=== PATIENT | female | born 1945 | race Caucasian/White ===

== ENCOUNTER 2016-10-21 09:40 | Emergency (ER) | payer MEDICARE ==
[2016-10-21 09:54] VITALS: TEMP 97; BMI 28.3
--- NOTE | 2016-10-21 10:38 | ED PDOC ---
HPI: General Adult Time Seen by Provider: 10/21/16 10:09 Chief Complaint (Nursing): Abdominal Pain Chief Complaint (Provider): abdominal pain History Per: Patient History/Exam Limitations: no limitations Additional Complaint(s): 71yo female comes to the ED complaining of right side flank pain for 2-3 days. Pain is constant, worse with movement, non-radiating. No nausae, vomit, diarrhea , fever, dysuria. She took Advil and muscle relaxant which minimally helped. PMD: buzz Past Medical History Reviewed: Historical Data, Nursing Documentation, Vital Signs Vital Signs: Last Vital Signs Temp 97 F L 10/21/16 09:53 Pulse 73 10/21/16 12:18 Resp BP 159/99 H 10/21/16 09:53 Pulse Ox 100 10/21/16 12:18 - Medical History PMH: Arthritis (spine), Back Problems, HTN, Hypercholesterolemia, Osteoporosis ( hips) - Surgical History Surgical History: Coronary Stent - Family History Family History: States: Unknown Family Hx - Home Medications Home Medications: Ambulatory Orders Medication Instructions Recorded Cyclobenzaprine [Flexeril] 5 mg PO Q8 PRN #6 tab 10/21/16 oxyCODONE/Acetaminophen [Percocet 1 ea PO Q6 PRN #6 tab 10/21/16 5/325 mg Tab] - Allergies Allergies/Adverse Reactions: Allergies Allergy/AdvReac Type Severity Reaction Status Date / Time No Known Allergies Allergy Verified 10/21/16 09:59 Review of Systems ROS Statement: Except As Marked, All Systems Reviewed And Found Negative Constitutional: Negative for: Fever Gastrointestinal: Negative for: Nausea, Vomiting, Diarrhea Genitourinary Female: Negative for: Dysuria Physical Exam - Reviewed Nursing Documentation Reviewed: Yes Vital Signs Reviewed: Yes - Physical Exam Appears: Positive for: Well, Non-toxic, No Acute Distress Head Exam: Positive for: ATRAUMATIC, NORMAL INSPECTION, NORMOCEPHALIC Skin: Positive for: Warm, Dry. Negative for: Rash Eye Exam: Positive for: EOMI, PERRL Cardiovascular/Chest: Positive for: Regular Rate, Rhythm Respiratory: Positive for: Normal Breath Sounds. Negative for: Rales, Rhonchi, Wheezing Gastrointestinal/Abdominal: Positive for: Soft, Tenderness (right upper quadrant , right flank). Negative for: Guarding, Rebound Back: Negative for: L CVA Tenderness, R CVA Tenderness Extremity: Positive for: Normal ROM Neurologic/Psych: Positive for: Alert, Oriented - Laboratory Results Result Diagrams: 10/21/16 10:54 10/21/16 10:54 - ECG ECG: Positive for: Interpreted By Me, Viewed By Me ECG Rhythm: Positive for: Normal QRS, Normal ST Segment, Sinus Rhythm. Negative for: ST/T Changes Rate: 73 O2 Sat by Pulse Oximetry: 100 (RA) Pulse Ox Interpretation: Normal - CT Scan/US CT abd/pel w/o Other Rad Studies (CT/US): Read By Radiologist, Radiology Report Reviewed Other Rad Interpretation: unremarkable - Progress Re-evaluation Time: 12:16 Condition: Re-examined, Improved Medical Decision Making Medical Decision Makin impression muscle spasm, musculoskeletal pain, atypical presentation renal colic Plan: CT abd/pel w/o, labs, Flexeril, Percocet. Disposition - Clinical Impression Clinical Impression: Flank pain, Muscle spasm - Patient ED Disposition Is Patient to be Admitted: No Doctor Will See Patient In The: Office Counseled Patient/Family Regarding: Studies Performed, Diagnosis, Need For Followup - Disposition Referrals: Anderson Weinstein MD [Family Provider] - Disposition: Routine/Home Disposition Time: 12:13 Condition: GOOD Additional Instructions: Follow up with your PCP in 2-3 days. Prescriptions: Cyclobenzaprine [Flexeril] 5 mg PO Q8 PRN #6 tab PRN Reason: Muscle Spasm oxyCODONE/Acetaminophen [Percocet 5/325 mg Tab] 1 ea PO Q6 PRN #6 tab PRN Reason: Pain, Severe (8-10) Instructions: Muscle Strain (ED)
[2016-10-21 10:59] LABS: BASO % 0.3 % (0.0-2.0); EOS # 0.1 K/uL (0.0-0.7); EOS % 1.6 % (0.0-4.0); HEMATOCRIT 40.1 % (34.0-47.0); LYMPH # 1.4 K/uL (1.0-4.3); LYMPH % 23.3 % (20.0-40.0); MEAN CELL VOLUME 82.6 fl (81.0-99.0); MEAN CORPUSCULAR HEMOGLOBIN 26.6 pg (27.0-31.0); MEAN CORPUSCULAR HGB CONC 32.2 g/dL (33.0-37.0); MEAN PLATELET VOLUME 9.1 fl (7.2-11.7); MONO # 0.3 K/uL (0.0-0.8); MONO % 4.6 % (0.0-10.0); NEUT # 4.3 K/uL (1.8-7.0); NEUT % 70.2 % (50.0-75.0); NRBC % 0.1 % (0.0-0.0); WHITE BLOOD COUNT 6.2 K/uL (4.8-10.8)
[2016-10-21 11:08] LABS: ALB/GLOB RATIO 1.2 (1.0-2.1); ALKALINE PHOSPHATASE 94 U/L (38-126); ALT/SGPT 33 U/L (9-52); AST/SGOT 25 U/L (14-36); BILIRUBIN,TOTAL 0.6 mg/dl (0.2-1.3); BLOOD UREA NITROGEN 11 mg/dl (7-17); CARBON DIOXIDE 28 mmol/L (22-30); CHLORIDE 107 mmol/L (98-107); GFR AFRICAN-AMERICAN > 60; GLUCOSE,RANDOM 99 mg/dL (65-105); POTASSIUM 4.1 MMOL/L (3.6-5.0); SODIUM 145 mmol/l (132-148); TOTAL PROTEIN 6.9 G/DL (6.3-8.2)
[2016-10-21] MEDS ORDERED: Oxycodone/Acetaminophen 5/325 mg Tab ONE (11:11)
[2016-10-21] MEDS ORDERED: Oxycodone/Acetaminophen 5/325 mg Tab PO ONE (11:13)
--- NOTE | 2016-10-21 11:53 | CT ---
PROCEDURE: CT Abdomen and Pelvis without intravenous contrast HISTORY: RIGHT FLANK PAIN COMPARISON: None. TECHNIQUE: Technique. Contrast Dose: Radiation dose: Total exam DLP = mGy-cm. FINDINGS: LOWER THORAX: Unremarkable. LIVER: Unremarkable. No gross lesion or ductal dilatation. GALLBLADDER AND BILE DUCTS: Unremarkable. PANCREAS: Unremarkable. No gross lesion or ductal dilatation. SPLEEN: Unremarkable. ADRENALS: Unremarkable. No mass. KIDNEYS AND URETERS: Unremarkable. No hydronephrosis. No solid mass. VASCULATURE: Unremarkable. No aortic aneurysm. BOWEL: Unremarkable. No obstruction. No gross mural thickening. APPENDIX: Unremarkable. Normal appendix. PERITONEUM: Unremarkable. No free fluid. No free air. LYMPH NODES: Unremarkable. No enlarged lymph nodes. BLADDER: Unremarkable. REPRODUCTIVE: Pessary in place.. BONES: No acute fracture. OTHER FINDINGS: None. IMPRESSION: Unremarkable non contrast enhanced CT of the abdomen and pelvis.
[2016-10-21 13:09] VITALS: BP 110/68; PULSE 70; RESP 16; O2SAT 98
== END 2016-10-21 13:11 | disposition home or self-care (01) ==
LOC: H.ER 09:40
DX: R10.9 Unspecified abdominal pain (principal); M62.838 Other muscle spasm; E78.00 Pure hypercholesterolemia, unspecified; I10 Essential (primary) hypertension; Z95.5 Presence of coronary angioplasty implant and graft

== ENCOUNTER 2017-10-21 00:47 | Observation (INO) | payer MEDICARE ==
[2017-10-21 00:48] VITALS: BMI 28.3
[2017-10-21 02:10] LABS: BASO # 0.1 K/uL (0.0-0.2); BASO % 0.9 % (0.0-2.0); EOS # 0.2 K/uL (0.0-0.7); EOS % 2.5 % (0.0-4.0); HEMOGLOBIN 12.5 g/dL (12.0-16.0); LYMPH # 2.1 K/uL (1.0-4.3); LYMPH % 24.2 % (20.0-40.0); MEAN CORPUSCULAR HEMOGLOBIN 26.6 pg (27.0-31.0); MEAN CORPUSCULAR HGB CONC 32.4 g/dL (33.0-37.0); MEAN PLATELET VOLUME 9.2 fl (7.2-11.7); MONO # 0.5 K/uL (0.0-0.8); MONO % 5.6 % (0.0-10.0); NEUT # 5.9 K/uL (1.8-7.0); NEUT % 66.8 % (50.0-75.0); NRBC % 0.2 % (0.0-0.0); RBC 4.7 Mil/uL (3.80-5.20); RED CELL DISTRIBUTION WIDTH 15.1 % (11.5-14.5); WHITE BLOOD COUNT 8.8 K/uL (4.8-10.8)
[2017-10-21 02:16] LABS: SQUAMOUS EPITHIAL 3 /hpf (0-5); URINE BILIRUBIN NEGATIVE (NEGATIVE); URINE BLOOD SMALL (NEGATIVE); URINE CLARITY SLIGHTY-CLOUDY (Clear); URINE COLOR YELLOW (YELLOW); URINE GLUCOSE (UA) NEG (Normal); URINE LEUKOCYTE ESTERASE NEG Leu/uL (Negative); URINE PROTEIN NEGATIVE (NEGATIVE); URINE UROBILINOGEN 0.2-1.0 mg/dL (0.2-1.0)
[2017-10-21 02:17] LABS: ALB/GLOB RATIO 1.2 (1.0-2.1); ALBUMIN 4.1 g/dL (3.5-5.0); ALT/SGPT 26 U/L (9-52); AST/SGOT 24 U/L (14-36); BLOOD UREA NITROGEN 14 mg/dl (7-17); CALCIUM 9.7 mg/dL (8.4-10.2); GFR AFRICAN-AMERICAN > 60; GFR NON-AFRICAN AMERICAN > 60
[2017-10-21 02:29] LABS: B-TYPE NATRIURETIC PEPTIDE 421 pg/ml (0-900)
[2017-10-21 02:38] LABS: PARTIAL THROMBOPLASTIN TIME 31.4 Seconds (25.6-37.1); PROTHROMBIN TIME 10.8 Seconds (9.8-13.1)
--- NOTE | 2017-10-21 03:03 | ED PDOC ---
HPI: Chest Pain Time Seen by Provider: 10/21/17 01:02 Chief Complaint (Nursing): Chest Pain Chief Complaint (Provider): Chest Pain History Per: Patient History/Exam Limitations: no limitations Onset/Duration Of Symptoms: Hrs (x2) Current Symptoms Are (Timing): Still Present Quality: Other (discomfort) Additional Complaint(s): 72 year old female presents to ED with complaints of chest pain x2 hours and has a past medical history of HTN, CAD, coronary stents x4, dyslipidemia, and a laparoscopy 5 days aog. Patient describes the pain as a discomfort present on the left side of her chest. Notes that the pain originated while the patient was at rest and that it radiates down her left arm in a "vibration" sensation. ( +) nausea and SOB. (-) vomiting or diaphoresis. PCP: Anderson Weinstein - Risk Factors TAD Risk Factors: Pos: Hypertension Past Medical History Reviewed: Historical Data, Nursing Documentation, Vital Signs Vital Signs: Last Vital Signs Temp 97.6 F 10/21/17 01:00 Pulse 58 L 10/21/17 05:33 Resp 17 10/21/17 05:33 BP 129/59 L 10/21/17 05:33 Pulse Ox 98 10/21/17 05:33 - Medical History PMH: Arthritis (spine), Back Problems, HTN, Hypercholesterolemia, Osteoporosis ( hips) - Surgical History Surgical History: Coronary Stent - Family History Family History: States: Unknown Family Hx - Social History Current smoker - smoking cessation education provided: No Ex-Smoker (has not smoked in the last 12 months): No Alcohol: None Drugs: Denies - Home Medications Home Medications: Ambulatory Orders Medication Instructions Recorded ALPRAZolam [Xanax] 0.25 mg PO PRN PRN 10/21/17 Aspirin [Ecotrin] 81 mg PO DAILY 10/21/17 Bisoprolol [Zebeta] 10 mg PO DAILY 10/21/17 Rosuvastatin Calcium [Crestor] 20 mg PO DAILY 10/21/17 Valsartan/Hydrochlorothiazide 1 tab PO DAILY 10/21/17 [Valsartan-Hctz 160-12.5 mg Tab] - Allergies Allergies/Adverse Reactions: Allergies Allergy/AdvReac Type Severity Reaction Status Date / Time No Known Allergies Allergy Verified 10/21/17 02:35 VERONIQUE Risk Score for UA/NSTEMI - VERONIQUE Risk Score Age > 64: YES Known CAD (Stenosis greater than 50%): YES VERONIQUE Score: 2 Risk %: 8% Curb-65 Severity Score - CURB-65 Severity Score Confusion: No Respiratory Rate greater than/equal to 30: No Systolic BP <90 or Diastolic BP less than/equal 60mmHg: No Age >64: Yes Curb-65 Score: 1 Percentage 30-day mortality: 2.7% Wells Criteria for PE - Wells Criteria for Pulmonary Embolism Clinical Signs and Symptoms of DVT: No P.E is #1 Diagnosis, or Equally Likely: No Heart Rate >100: No Previous, objectively diagnosed PE or DVT: No Hemoptysis: No Total Score: 0 Review of Systems ROS Statement: Except As Marked, All Systems Reviewed And Found Negative Constitutional: Negative for: Sweats Cardiovascular: Positive for: Chest Pain Respiratory: Positive for: Shortness of Breath Gastrointestinal: Positive for: Nausea. Negative for: Vomiting Musculoskeletal: Positive for: Arm Pain (chest pain radiates to left arm in a "vibration" sensation) Physical Exam - Reviewed Nursing Documentation Reviewed: Yes Vital Signs Reviewed: Yes - Physical Exam Appears: Positive for: Non-toxic, No Acute Distress Skin: Positive for: Normal Color, Warm, Dry Cardiovascular/Chest: Positive for: Regular Rate, Rhythm. Negative for: Murmur Respiratory: Positive for: Normal Breath Sounds. Negative for: Respiratory Distress Gastrointestinal/Abdominal: Positive for: Normal Exam (Well-healed umbilical scar with some ecchymosis. Well-healed suprapubic scar with some ecchymosis.), Soft. Negative for: Tenderness Extremity: Positive for: Normal ROM. Negative for: Deformity Neurologic/Psych: Positive for: Alert, Oriented. Negative for: Motor/Sensory Deficits - Laboratory Results Result Diagrams: 10/21/17 02:02 10/21/17 02:02 - ECG O2 Sat by Pulse Oximetry: 99 (RA) Pulse Ox Interpretation: Normal Medical Decision Making Medical Decision Makin Initial impression: chest pain in setting of known coronary disease Initial plan: * Labs * Trop I * PTT/PT * CXR * UA 0310 CXR: NAD 0400 Labs reviewed: no clinically significant abnormalities. Discussed case with Dr. Lucas, who accepts patient under his care for chest pain ( CHEST PAIN OBS) Condition: fair Scribe Attestation: Documented by Sarah Chapin acting as a scribe for Linden S Sikand, MD. Scribe Attestation: All medical record entries made by the Scribe were at my direction and personally dictated by me. I have reviewed the chart and agree that the record accurately reflects my personal performance of the history, physical exam, medical decision making, and the department course for this patient. I have also personally directed, reviewed, and agree with the discharge instructions and disposition. Disposition - Clinical Impression Clinical Impression: Chest pain - Patient ED Disposition Is Patient to be Admitted: Yes Discussed With : Kevon Lucas - Disposition Disposition Time: 04:00 Condition: FAIR - Pt Status Changed To: Hospital Disposition Of: Observation (OBS CHEST PAIN)
--- NOTE | 2017-10-21 06:09 | CP.PCM.HP ---
History of Present Illness - History of Present Illness History of Present Illness: CC: Chest pain HPI: This is a 72 y/o female with known CAD as well as HTN, HLD, and several recent manager investment banking surgeries. She states that she developed CP about 2 hours prior to arrival with radiation to the L and? palpitations. States she is always slightly SOB, but this is not worse. Denies n/v/d. Denies diaphoresis. States she had hysterectomy last month and then laparoscopy for persistent abd pain about 5 days ago. Denies f/c/n/v/d. ROS: 14 systems reviewed, negative other than HPI MHx: CAD, HTN, HLD, osteoporosis SHx: Stents, hysterectomy, laparoscopy (5 days ago) Allergies: NKDA Medications: as per med rec Family Hx: Patient unaware of any relevant history Social Hx: Patient lives alone, no significant EtOH, no tobacco Surrogate: Daughter, contact info in chart Present on Admission - Present on Admission Any Indicators Present on Admission: No Past Patient History - Past Social History Alcohol: None Drugs: Denies - CARDIAC Hx Hypercholesterolemia: Yes Hx Hypertension: Yes - MUSCULOSKELETAL/RHEUMATOLOGICAL Hx Arthritis: Yes (spine) Hx Osteoporosis: Yes (hips) - PSYCHIATRIC Hx Substance Use: No - SURGICAL HISTORY Hx Coronary Stent: Yes - ANESTHESIA Hx Anesthesia: Yes Hx Anesthesia Reactions: No Meds Allergies/Adverse Reactions: Allergies Allergy/AdvReac Type Severity Reaction Status Date / Time No Known Allergies Allergy Verified 10/21/17 02:35 Physical Exam - Constitutional Appears: No Acute Distress - Head Exam Head Exam: ATRAUMATIC, NORMOCEPHALIC - Eye Exam Eye Exam: EOMI, PERRL - ENT Exam ENT Exam: Mucous Membranes Moist - Neck Exam Neck exam: Positive for: Full Rom - Respiratory Exam Respiratory Exam: Clear to Auscultation Bilateral, NORMAL BREATHING PATTERN - Cardiovascular Exam Cardiovascular Exam: REGULAR RHYTHM, +S1, +S2 - GI/Abdominal Exam GI & Abdominal Exam: Normal Bowel Sounds, Soft - Extremities Exam Extremities exam: Positive for: full ROM, normal inspection - Neurological Exam Neurological exam: Alert, CN II-XII Intact, Oriented x3 - Psychiatric Exam Psychiatric exam: Normal Affect, Normal Mood - Skin Skin Exam: Dry, Warm Results - Vital Signs Recent Vital Signs: Last Vital Signs Temp 97.6 F 10/21/17 01:00 Pulse 58 L 10/21/17 05:33 Resp 17 10/21/17 05:33 BP 129/59 L 10/21/17 05:33 Pulse Ox 98 10/21/17 05:33 - Labs Result Diagrams: 10/21/17 02:02 10/21/17 02:02 Labs: Laboratory Results - last 24 hr 10/21/17 10/21/17 10/21/17 02:02 02:02 02:02 WBC 8.8 RBC 4.70 Hgb 12.5 Hct 38.5 MCV 82.0 MCH 26.6 L MCHC 32.4 L RDW 15.1 H Plt Count 207 MPV 9.2 Neut % (Auto) 66.8 Lymph % (Auto) 24.2 [place] % (Auto) 5.6 Eos % (Auto) 2.5 Baso % (Auto) 0.9 Neut # (Auto) 5.9 Lymph # (Auto) 2.1 [place] # (Auto) 0.5 Eos # (Auto) 0.2 Baso # (Auto) 0.1 PT 10.8 INR 1.0 APTT 31.4 Sodium 143 Potassium 4.0 Chloride 101 Carbon Dioxide 29 Anion Gap 17 BUN 14 Creatinine 0.7 Est GFR ( Amer) > 60 Est GFR (Non-Af Amer) > 60 Random Glucose 102 Calcium 9.7 Total Bilirubin 0.6 AST 24 ALT 26 Alkaline Phosphatase 93 Troponin I < 0.0120 NT-Pro-B Natriuret Pep 421 Total Protein 7.6 Albumin 4.1 Globulin 3.5 Albumin/Globulin Ratio 1.2 Urine Color Urine Clarity Urine pH Ur Specific [place] Urine Protein Urine Glucose (UA) Urine Ketones Urine Blood Urine Nitrate Urine Bilirubin Urine Urobilinogen Ur Leukocyte Esterase Urine RBC (Auto) Urine Microscopic WBC Ur Squamous Epith Cells 10/21/17 02:02 WBC RBC Hgb Hct MCV MCH MCHC RDW Plt Count MPV Neut % (Auto) Lymph % (Auto) [place] % (Auto) Eos % (Auto) Baso % (Auto) Neut # (Auto) Lymph # (Auto) [place] # (Auto) Eos # (Auto) Baso # (Auto) PT INR APTT Sodium Potassium Chloride Carbon Dioxide Anion Gap BUN Creatinine Est GFR ( Amer) Est GFR (Non-Af Amer) Random Glucose Calcium Total Bilirubin AST ALT Alkaline Phosphatase Troponin I NT-Pro-B Natriuret Pep Total Protein Albumin Globulin Albumin/Globulin Ratio Urine Color Yellow Urine Clarity Slighty-cloudy Urine pH 7.0 Ur Specific [place] 1.016 Urine Protein Negative Urine Glucose (UA) Neg Urine Ketones Negative Urine Blood Small Urine Nitrate Negative Urine Bilirubin Negative Urine Urobilinogen 0.2-1.0 Ur Leukocyte Esterase Neg Urine RBC (Auto) 1 Urine Microscopic WBC 2 Ur Squamous Epith Cells 3 - EKG Data EKG Interpreted by: Myself EKG shows normal: Sinus rhythm Rate: Normal - EKG Data EKG comments: No st elevation/depression, no specific findings - Imaging and Cardiology Chest x-ray Status: Image reviewed by me (no significant findings) Assessment & Plan (1) Chest pain Assessment and Plan: A/P: 72 y/o female with HTN, HLD and known CAD presenting with CP. r/o ACS. -Admit tele -Serial trops -Consider echo, cardiology consult as needed -ASA 325 daily, SLNG PRN -Cont medications for HTN, HLD -SCDs/ambulation for DVT PPx Status: Acute (2) CAD (coronary artery disease) Status: Acute (3) HTN (hypertension) Status: Acute (4) HLD (hyperlipidemia) Status: Acute (5) DVT prophylaxis Status: Acute
[2017-10-21 06:48] VITALS: O2SAT 98
--- NOTE | 2017-10-21 08:30 | RAD ---
HISTORY: chest pain COMPARISON: Portable chest 10/16/2010. FINDINGS: LUNGS: No active pulmonary disease. PLEURA: No significant pleural effusion identified, no pneumothorax apparent. CARDIOVASCULAR: Normal. OSSEOUS STRUCTURES: No significant abnormalities. VISUALIZED UPPER ABDOMEN: Normal. OTHER FINDINGS: None. IMPRESSION: No interval acute cardiopulmonary disease appreciated.
[2017-10-21] MEDS ORDERED: Aspirin 325 mg EC Tablets PO ONE (10:07)
--- NOTE | 2017-10-21 17:27 | CP.PCM.DIS ---
Provider - Provider Date of Admission: 10/21/17 05:03 Attending physician: Kevon Lucas MD Primary care physician: Anderson Weinstein MD Time Spent in preparation of Discharge (in minutes): 25 Hospital Course - Lab Results Lab Results: Most Recent Lab Values WBC 8.8 K/uL (4.8-10.8) 10/21/17 02:02 RBC 4.70 Mil/uL (3.80-5.20) 10/21/17 02:02 Hgb 12.5 g/dL (12.0-16.0) 10/21/17 02:02 Hct 38.5 % (34.0-47.0) 10/21/17 02:02 MCV 82.0 fl (81.0-99.0) 10/21/17 02:02 MCH 26.6 pg (27.0-31.0) L 10/21/17 02:02 MCHC 32.4 g/dL (33.0-37.0) L 10/21/17 02:02 RDW 15.1 % (11.5-14.5) H 10/21/17 02:02 Plt Count 207 K/uL (130-400) 10/21/17 02:02 MPV 9.2 fl (7.2-11.7) 10/21/17 02:02 Neut % (Auto) 66.8 % (50.0-75.0) 10/21/17 02:02 Lymph % (Auto) 24.2 % (20.0-40.0) 10/21/17 02:02 [place] % (Auto) 5.6 % (0.0-10.0) 10/21/17 02:02 Eos % (Auto) 2.5 % (0.0-4.0) 10/21/17 02:02 Baso % (Auto) 0.9 % (0.0-2.0) 10/21/17 02:02 Neut # (Auto) 5.9 K/uL (1.8-7.0) 10/21/17 02:02 Lymph # (Auto) 2.1 K/uL (1.0-4.3) 10/21/17 02:02 [place] # (Auto) 0.5 K/uL (0.0-0.8) 10/21/17 02:02 Eos # (Auto) 0.2 K/uL (0.0-0.7) 10/21/17 02:02 Baso # (Auto) 0.1 K/uL (0.0-0.2) 10/21/17 02:02 PT 10.8 Seconds (9.8-13.1) 10/21/17 02:02 INR 1.0 (0.9-1.2) 10/21/17 02:02 APTT 31.4 Seconds (25.6-37.1) 10/21/17 02:02 Sodium 143 mmol/l (132-148) 10/21/17 02:02 Potassium 4.0 MMOL/L (3.6-5.0) 10/21/17 02:02 Chloride 101 mmol/L (98-107) 10/21/17 02:02 Carbon Dioxide 29 mmol/L (22-30) 10/21/17 02:02 Anion Gap 17 (10-20) 10/21/17 02:02 BUN 14 mg/dl (7-17) 10/21/17 02:02 Creatinine 0.7 mg/dl (0.7-1.2) 10/21/17 02:02 Est GFR ( Amer) > 60 10/21/17 02:02 Est GFR (Non-Af Amer) > 60 10/21/17 02:02 Random Glucose 102 mg/dL (65-105) 10/21/17 02:02 Calcium 9.7 mg/dL (8.4-10.2) 10/21/17 02:02 Total Bilirubin 0.6 mg/dl (0.2-1.3) 10/21/17 02:02 AST 24 U/L (14-36) 10/21/17 02:02 ALT 26 U/L (9-52) 10/21/17 02:02 Alkaline Phosphatase 93 U/L (38-126) 10/21/17 02:02 Troponin I < 0.0120 ng/mL (0.00-0.120) 10/21/17 11:40 NT-Pro-B Natriuret Pep 421 pg/ml (0-900) 10/21/17 02:02 Total Protein 7.6 G/DL (6.3-8.2) 10/21/17 02:02 Albumin 4.1 g/dL (3.5-5.0) 10/21/17 02:02 Globulin 3.5 gm/dL (2.2-3.9) 10/21/17 02:02 Albumin/Globulin Ratio 1.2 (1.0-2.1) 10/21/17 02:02 Urine Color Yellow (YELLOW) 10/21/17 02:02 Urine Clarity Slighty-cloudy (Clear) 10/21/17 02:02 Urine pH 7.0 (5.0-8.0) 10/21/17 02:02 Ur Specific [place] 1.016 (1.003-1.030) 10/21/17 02:02 Urine Protein Negative mg/dL (NEGATIVE) 10/21/17 02:02 Urine Glucose (UA) Neg mg/dL (Normal) 10/21/17 02:02 Urine Ketones Negative mg/dL (NEGATIVE) 10/21/17 02:02 Urine Blood Small (NEGATIVE) 10/21/17 02:02 Urine Nitrate Negative (NEGATIVE) 10/21/17 02:02 Urine Bilirubin Negative (NEGATIVE) 10/21/17 02:02 Urine Urobilinogen 0.2-1.0 mg/dL (0.2-1.0) 10/21/17 02:02 Ur Leukocyte Esterase Neg Rigoberto/uL (Negative) 10/21/17 02:02 Urine RBC (Auto) 1 /hpf (0-3) 10/21/17 02:02 Urine Microscopic WBC 2 /hpf (0-5) 10/21/17 02:02 Ur Squamous Epith Cells 3 /hpf (0-5) 10/21/17 02:02 - Hospital Course Hospital Course: This is a 72 year old female with pmh of CAD and stents x 4, hypertension, hyperlipidemia, with hysterectomy 1 month ago and follow up laparoscopy 5 days prior to admission who presented to the ED with the complaint of chest pain on the left side of her chest, beginning at rest, radiating down her left forearm with a "vibration" and tingling sensation. Complained of intermitted nausea and diaphoresis. Admitted to anxiety after her most recent procedure. In the ED, the patient was found to have nonischemic EKG and negative troponin. However the decision was made to keep her on telemetry/observation due to her significant cardiac history. Echocardiogram was performed. Troponin performed today was also undetectable. The patient is currently chest pain free and denies any nausea, sob, or other symptoms. She is being discharged to home in stable condition. Assessment and Plan: A/P: 72 y/o female with HTN, HLD and known CAD presenting with CP. r/o ACS. (1) Chest pain -discharged in stable condition, no adverse events on telemetry - nonischemic EKG -Serial trops x 2 negative, chest pain free -Echocardiogram performed, to be f/u as outpatient -ASA 81 mg po daily as outpatient -Cont medications for HTN, HLD -SCDs/ambulation for DVT PPx -Contact information given to patient for Dr. Felix, cardiology -Patient to follow up with her PMD within a week Status: Acute (2) CAD (coronary artery disease) Status: Acute (3) HTN (hypertension) Status: Acute - Continue Bisoprolol - Continue Diovan (4) HLD (hyperlipidemia) Status: Acute - Continue Lipitor (5) DVT prophylaxis Status: Acute Discharge Exam - Head Exam Head Exam: ATRAUMATIC, NORMOCEPHALIC - Additional Findings Additional findings: Physical exam: Constitutional- cooperative, awake, alert Head- NCAT, PERRL Eye- PERRL, EOMI ENT- normal exam, MMM. Neck- normal inspection, supple, no JVD Respiratory- CTAB, no wheezes rales rhonchi Cardiovascular- RRR, +S1, +S2 no MRG GI/Abdominal- normal bowel sounds, soft, no mass, no hsm Skin- warm, dry Extremities Exam- normal capillary refill, normal inspection Neurological Exam- alert, awake, oriented Psych- normal mood, normal affect Discharge Plan - Follow Up Plan Condition: FAIR Disposition: HOME/ ROUTINE Referrals: Anderson Weinstein MD [Primary Care Provider] - Alfonso Felix MD [Staff Provider] -
[2017-10-21 18:25] VITALS: BP 112/74; PULSE 70; RESP 20; TEMP 98.4
--- NOTE | 2017-10-21 23:26 | CARD ---
APPROVED REPORT EXAM: Two-dimensional and M-mode echocardiogram with Doppler and color Doppler. Other Information Quality : GoodRhythm : NSR INDICATION Cardiac Disease: CAD Chest Pain 2D DIMENSIONS IVSd1.12 (0.7-1.1cm)LVDd4.23 (3.9-5.9cm) LVOT Diameter1.86 (1.8-2.4cm)PWd1.00 (0.7-1.1cm) IVSs1.51 (0.8-1.2cm)LVDs2.79 (2.5-4.0cm) FS (%) 34.1 %PWs1.45 (0.8-1.2cm) LVEF (%)55.0 (>50%) M-Mode DIMENSIONS Left Atrium (MM)3.81 (2.5-4.0cm)IVSd0.82 (0.7-1.1cm) Aortic Root2.63 (2.2-3.7cm)LVDd5.28 (4.0-5.6cm) Aortic Cusp Exc.1.83 (1.5-2.0cm)PWd0.98 (0.7-1.1cm) IVSs1.75 cmFS (%) 56 % LVDs2.32 (2.0-3.8cm)PWs1.54 cm Mitral Valve MV E Qzkgzyra69.7cm/sMV DECEL [id number] A Daqmkkrr00.6cm/s MV JOR01trF/A ratio1.0MVA (PHT)3.85cm2 TDI Lateral E' Peak V9.53cm/sMedial E' Peak V6.68cm/sE/Lateral E'7.0 E/Medial E'10.0 Pulmonary Valve PV Peak Tcufnxjm84.7cm/s LEFT VENTRICLE The left ventricle is normal size. There is borderline concentric left ventricular hypertrophy. The left ventricular function is normal. The left ventricular ejection fraction is within the normal range. There is normal LV segmental wall motion. Transmitral Doppler flow pattern is Grade I-abnormal relaxation pattern. RIGHT VENTRICLE The right ventricle is normal size. There is normal right ventricular wall thickness. Systolic function is borderline reduced. ATRIA The left atrium size is normal. The right atrium size is normal. AORTIC VALVE The aortic valve is normal in structure. No aortic regurgitation is present. There is no aortic valvular stenosis. MITRAL VALVE The mitral valve is normal in structure. There is no evidence of mitral valve prolapse. There is no mitral valve stenosis. There is no mitral valve regurgitation noted. TRICUSPID VALVE The tricuspid valve is normal in structure. There is mild tricuspid regurgitation. PULMONIC VALVE The pulmonary valve is normal in structure. There is no pulmonic valvular regurgitation. GREAT VESSELS The aortic root is normal in size. The IVC is normal in size and collapses >50% with inspiration. PERICARDIAL EFFUSION There is a trace loculated anterior pericardial effusion. <Conclusion> The left ventricle is normal size. There is borderline concentric left ventricular hypertrophy. The left ventricular function is normal. The left ventricular ejection fraction is within the normal range. There is normal LV segmental wall motion. Transmitral Doppler flow pattern is Grade I-abnormal relaxation pattern.
== END 2017-10-21 17:30 | disposition home or self-care (01) ==
LOC: H.ER 00:47 → H.ERHOLD 05:03
PROVIDERS: ADMIT Internal Medicine; ATTEND Internal Medicine
DX: R07.9 Chest pain, unspecified (principal); I25.10 Atherosclerotic heart disease of native coronary artery without angina pectoris; M81.0 Age-related osteoporosis without current pathological fracture; Z79.82 Long term (current) use of aspirin; Z90.710 Acquired absence of both cervix and uterus; Z95.5 Presence of coronary angioplasty implant and graft; M19.90 Unspecified osteoarthritis, unspecified site; Z79.899 Other long term (current) drug therapy; E78.00 Pure hypercholesterolemia, unspecified; E78.5 Hyperlipidemia, unspecified; F41.9 Anxiety disorder, unspecified; I10 Essential (primary) hypertension
CPT/HCPCS: 71045; 80053; 81003; 83880; 84484; 85025; 85610; 85730; 93306; 99283; G0378

== ENCOUNTER 2018-05-25 12:39 | Emergency (ER) | payer MEDICARE ==
[2018-05-25 12:39] VITALS: BMI 28.3
--- NOTE | 2018-05-25 13:24 | ED PDOC ---
HPI: Chest Pain Time Seen by Provider: 05/25/18 13:03 Chief Complaint (Nursing): Chest Pain Chief Complaint (Provider): Chest Pain History Per: Patient History/Exam Limitations: no limitations Onset/Duration Of Symptoms: Days (x3) Current Symptoms Are (Timing): Constant Quality: Squeezing Associated Symptoms: denies: Nausea Additional Complaint(s): Patient is a 73 y/o female with history of osteoporosis and arthritis with [address], who presents to the ED with chest pain with associated left arm numbness/discomfort, onset x3 days ago. Patient describes the pain as a constant squeezing pain. She states her pain is severe but she is able to sleep through it if she takes aspirin. She describes her numbness as a "funny feeling" in her arm and symptoms are present on arrival to ED. Patient also reports swollen fingers, headache, swelling in legs, and difficulty breathing when walking. 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 She denies nausea and vomiting. Patient additionally reports she has trouble getting up and states she feels unstable and it "takes a while for bones to go back in place." PMD: Anderson Weinstein Past Medical History Reviewed: Historical Data, Nursing Documentation, Vital Signs Vital Signs: Last Vital Signs Temp 97.4 F L 05/25/18 12:46 Pulse 66 05/25/18 12:46 Resp 18 05/25/18 12:46 BP 158/72 H 05/25/18 12:46 Pulse Ox 96 05/25/18 12:46 - Medical History PMH: Arthritis (spine), Back Problems, HTN, Hypercholesterolemia, Osteoporosis (hips) - Surgical History Surgical History: Coronary Stent (x3) Other surgeries: partial hysterectomy - Family History Family History: States: Unknown Family Hx - Home Medications Home Medications: Ambulatory Orders Medication Instructions Recorded ALPRAZolam [Xanax] 0.25 mg PO PRN PRN 10/21/17 Aspirin [Ecotrin] 81 mg PO DAILY 10/21/17 Bisoprolol [Zebeta] 10 mg PO DAILY 10/21/17 Rosuvastatin Calcium [Crestor] 20 mg PO DAILY 10/21/17 Valsartan/Hydrochlorothiazide 1 tab PO DAILY 10/21/17 [Valsartan-Hctz 160-12.5 mg Tab] hydroCHLOROthiazide [Microzide] 12.5 mg PO DAILY cap 10/21/17 - Allergies Allergies/Adverse Reactions: Allergies Allergy/AdvReac Type Severity Reaction Status Date / Time No Known Allergies Allergy Verified 05/25/18 12:51 Review of Systems ROS Statement: Except As Marked, All Systems Reviewed And Found Negative Cardiovascular: Positive for: Chest Pain, Edema (swelling in legs) Respiratory: Positive for: SOB with Exertion (walking) Gastrointestinal: Negative for: Nausea, Diarrhea Neurological: Positive for: Numbness (left arm), Headache Physical Exam - Reviewed Nursing Documentation Reviewed: Yes Vital Signs Reviewed: Yes - Physical Exam Appears: Positive for: Well, Non-toxic, No Acute Distress Head Exam: Positive for: ATRAUMATIC, NORMOCEPHALIC Skin: Positive for: Normal Color, Warm, Dry Eye Exam: Positive for: EOMI, Normal appearance, PERRL Neck: Positive for: Normal, Painless ROM, Supple Cardiovascular/Chest: Positive for: Regular Rate, Rhythm. Negative for: Murmur Respiratory: Positive for: Normal Breath Sounds. Negative for: Respiratory Distress Gastrointestinal/Abdominal: Positive for: Normal Exam, Soft. Negative for: Tenderness Back: Positive for: Normal Inspection. Negative for: L CVA Tenderness, R CVA Tenderness, Vertebral Tenderness Extremity: Positive for: Normal ROM. Negative for: Pedal Edema, Deformity Neurologic/Psych: Positive for: Alert, Oriented. Negative for: Motor/Sensory Deficits - Laboratory Results Result Diagrams: 05/25/18 13:50 05/25/18 13:50 - ECG O2 Sat by Pulse Oximetry: 96 (RA) Pulse Ox Interpretation: Normal Medical Decision Making Medical Decision Making: Time: 131 Impression: Chest pain and left arm numbness Initial Plan: EKG CMP Lipid panel Troponin I CBC w/ diff CXR Scribe Attestation: Documented by Ulisses Salinas, acting as a scribe for Shiloh Bean MD. Provider Scribe Attestation: All medical record entries made by the Scribe were at my direction and personally dictated by me. I have reviewed the chart and agree that the record accurately reflects my personal performance of the history, physical exam, medical decision making, and the department course for this patient. I have also personally directed, reviewed, and agree with the discharge instructions and disposition. Disposition - Clinical Impression Clinical Impression: Chest pain - Patient ED Disposition Is Patient to be Admitted: No Doctor Will See Patient In The: Office Counseled Patient/Family Regarding: Diagnosis, Need For Followup - Disposition Disposition: Routine/Home Disposition Time: 14:49 Condition: STABLE Instructions: Chest Pain Forms: [facility] (Surinamese) - POA Present On Arrival: None
[2018-05-25 14:02] LABS: BASO % 0.7 % (0.0-2.0); EOS # 0.2 K/uL (0.0-0.7); EOS % 2.5 % (0.0-4.0); HEMOGLOBIN 13.1 g/dL (12.0-16.0); LYMPH # 1.8 K/uL (1.0-4.3); LYMPH % 26.3 % (20.0-40.0); MEAN CELL VOLUME 83.2 fl (81.0-99.0); MEAN CORPUSCULAR HEMOGLOBIN 27.2 pg (27.0-31.0); MEAN CORPUSCULAR HGB CONC 32.7 g/dL (33.0-37.0); MEAN PLATELET VOLUME 9.5 fl (7.2-11.7); MONO # 0.3 K/uL (0.0-0.8); MONO % 4.3 % (0.0-10.0); NEUT # 4.5 K/uL (1.8-7.0); NEUT % 66.2 % (50.0-75.0); RBC 4.82 Mil/uL (3.80-5.20); RED CELL DISTRIBUTION WIDTH 13.9 % (11.5-14.5); WHITE BLOOD COUNT 6.8 K/uL (4.8-10.8)
[2018-05-25 14:09] LABS: ALB/GLOB RATIO 1.1 (1.0-2.1); ALBUMIN 3.8 g/dL (3.5-5.0); ALT/SGPT 17 U/L (9-52); AST/SGOT 23 U/L (14-36); BLOOD UREA NITROGEN 13 mg/dl (7-17); CALCIUM 9.1 mg/dL (8.4-10.2); GFR NON-AFRICAN AMERICAN > 60; HDL CHOLESTEROL 58 MG/DL (30-70)
[2018-05-25 14:20] LABS: LDL CHOLESTEROL 78 mg/dL (0-129)
[2018-05-25 15:18] VITALS: BP 163/60; PULSE 60; RESP 16; TEMP 97.8; O2SAT 100
--- NOTE | 2018-05-25 15:33 | RAD ---
Date of service: 05/25/2018 HISTORY: chest pain x 3 days COMPARISON: Chest radiograph dated 10/21/2017 TECHNIQUE: Chest PA and lateral FINDINGS: LUNGS: No active pulmonary disease. PLEURA: No significant pleural effusion identified. No pneumothorax apparent. CARDIOVASCULAR: Aortic atherosclerotic calcifications. Cardiomediastinal silhouette stably prominent. OSSEOUS STRUCTURES: Unchanged. VISUALIZED UPPER ABDOMEN: Normal. OTHER FINDINGS: None. IMPRESSION: No active disease.
--- NOTE | 2018-05-25 21:49 | CARD ---
APPROVED REPORT Date of service: 05/25/2018 EKG Measurement Heart [id number] <Conclusion> Sinus bradycardia Nonspecific ST and T wave abnormality Abnormal ECG
== END 2018-05-25 14:54 | disposition home or self-care (01) ==
LOC: H.ER 12:39
DX: R07.89 Other chest pain (principal); E78.00 Pure hypercholesterolemia, unspecified; I10 Essential (primary) hypertension; Z95.5 Presence of coronary angioplasty implant and graft